=== PATIENT | male | born 1985 | race Caucasian/White ===

== ENCOUNTER 2017-08-24 02:57 | Emergency (ER) | payer SELFPAY ==
[2017-08-24 03:03] VITALS: BP 110/59; PULSE 90; TEMP 98.2; BMI 28.8
--- NOTE | 2017-08-24 03:20 | PDOC ---
History of Present Illness - General Chief Complaint: Cold Symptoms Stated Complaint: COLD SYMPTOMS Time Seen by Provider: 08/24/17 03:01 - History of Present Illness Initial Comments: 08/24/17 03:23 This otherwise healthy 32-year-old man presents with 2 week history of intermittent cough/ fever. Patient states that he has had episodes of nonproductive cough, fever, sore throat for the last 2 weeks. There are times that he gets better for a few days but then relapses. Tonight, he comes to the ER because he developed marked nasal congestion and noted mucus/clotted blood when he blew his nose just prior to presentation. This occurred after using [id number] "Vicks" nasal spray There was no epistaxis. He states he has had extensive exposure to family members who have similar symptoms of "the flu" . He is unsure whether any of his family members have been diagnosed with influenza or been treated with Tamiflu. He last measured his temperature last week and it was approximately 100.5F. He denies shaking chills and last took ibuprofen at 3 PM yesterday Patient did not receive influenza vaccine this year. No history of asthma/chronic bronchitis or other chronic respiratory illness Patient admits to smoking 1-2 packs of cigarettes daily Past History - Past Medical History Allergies/Adverse Reactions: Allergies Allergy/AdvReac Type Severity Reaction Status Date / Time No Known Allergies Allergy Verified 03/23/16 21:24 Home Medications: Ambulatory Orders Fluticasone Prop 0.05% Nasal [Flonase -] 1 - 2 spray NS BID #1 spray.pump COPD: No - Suicide/Smoking/Psychosocial Hx Smoking History: Current every day smoker Number of Cigarettes Smoked Daily: 40 Information on smoking cessation initiated: Yes 'Breaking Loose' booklet given: 08/24/17 Hx Alcohol Use: No Drug/Substance Use Hx: No Substance Use Type: None Review of Systems - Review of Systems Able to Perform ROS?: Yes Comments:: 12 point review of systems is negative except for what is noted in the history of present illness *Physical Exam - Vital Signs Last Vital Signs Temp Pulse Resp BP Pulse Ox 98.2 F 90 18 110/59 100 08/24/17 03:01 08/24/17 03:01 08/24/17 03:01 08/24/17 03:01 08/24/17 03:01 - Physical Exam Comments: GENERAL: Adult male, alert and oriented 3, ; speaking in full sentences with no respiratory distress Patient is afebrile; pulse oximetry 100% on room air EYES: PERRLA, EOMI, sclera anicteric, conjunctiva clear. ENT: Ears normal, nares patent, oropharynx moderately erythematous without exudates. Dry mucous membranes. NECK: Normal range of motion, supple without lymphadenopathy, JVD, or masses. LUNGS: Breath sounds equal, clear to auscultation bilaterally. No wheezes, and no crackles. HEART:Regular rate and rhythm, normal S1 and S2 without murmur, rub or gallop. ABDOMEN:.normal bowel sounds No guarding,tenderness or rebound.No masses No distention. EXTREMITIES: Normal range of motion, no edema. No clubbing or cyanosis. No erythema, or tenderness. NEUROLOGICAL: Cranial nerves II through XII grossly intact. Normal speech. No focal neurological deficits. MUSCULOSKELETAL: Back non-tender to palpation, no CVA tenderness SKIN: Warm, Dry, normal turgor, no rashes or lesions noted. Progress Note - Progress Note Progress Note: This 32-year-old man with no significant past medical history but is a heavy smoker presents with a few week history of nonproductive cough, fever and upper respiratory symptoms. On exam he is afebrile and has excellent oxygenation on room air. Other than mildly erythematous pharynx without exudates or edema, exam is normal with clear breath sounds and excellent air exchange. Clinical presentation most consistent with upper respiratory infection and mild bronchitis. Patient is currently using a vaporizer and he is encouraged to continue this and drink plenty of fluids. Because he is particularly bothered by his nasal symptoms (congestion), Flonase spray will be prescribed. He should avoid smoking as much as possible. He will return to the emergency room or see his doctor if he has persistent fever/productive cough/shortness of breath/wheezing *DC/Admit/Observation/Transfer Diagnosis at time of Disposition: Upper respiratory infection, viral, Bronchitis - Discharge Dispostion Disposition: HOME Condition at time of disposition: Stable - Prescriptions Prescriptions: Fluticasone Prop 0.05% Nasal [Flonase -] 1 - 2 spray NS BID #1 spray.pump - Referrals - Patient Instructions Printed Discharge Instructions: DI for Viral Upper Respiratory Infection -- Adult Additional Instructions: Drink plenty of fluids; continue use of vaporizer in room Flonase 2 sprays in each nostril twice a day for the next week Consider using antihistamine/decongestant if ear discomfort persists Avoid smoking Motrin/Aleve/Tylenol as needed for fever or body aches Return or see your doctor if you have difficulty breathing/high fever/green or yellow phlegm or nasal discharge - Post Discharge Activity
== END 2017-08-24 03:23 | disposition home or self-care (01) ==
LOC: FER 02:57
DX: J06.9 Acute upper respiratory infection, unspecified (principal); J40 Bronchitis, not specified as acute or chronic; F17.210 Nicotine dependence, cigarettes, uncomplicated
CPT/HCPCS: 99281-25

== ENCOUNTER 2018-05-27 11:51 | Emergency (ER) | payer OTHER ==
[2018-05-27 11:58] VITALS: BP 116/80; PULSE 83; TEMP 98.6; BMI 27.3
--- NOTE | 2018-05-27 12:08 | PDOC ---
History of Present Illness - General Chief Complaint: Pain, Acute Stated Complaint: LEFT SIDE PAIN Time Seen by Provider: 05/27/18 12:05 - History of Present Illness Initial Comments: 05/27/18 12:07 33 yo M with h/o spinal disc herniation, who presents with left sided flank pain. Patient reports acute onset of sharp, left sided spasmodic, flank pain, worse with deep inhalation, touch, and cough, and lasting for seconds. Pain x 2 days, with increased severity, not alleviated with OTC Advil (05/26/18). Reports similar onset, self resolving x 1 week ago lasting seconds. Also endorsed 2 days of nausea, without vomiting. Denies recent back trauma, heavy lifting, repetitive straining. Pain different than chronic lower lumbar back pain. Patient denies F,C, CP, SOB, dysuria, urinary complaints, abdominal pain, diarrhea, constipation, hematuria, BPR, lightheadedness, weakness, sensory changes. PMHx: as noted above. Denies h/o abdominal surgeries. ROS: as noted SHx: 1 ppd x 20 years tobacco use. Allergies: NKDA Past History - Past Medical History Allergies/Adverse Reactions: Allergies Allergy/AdvReac Type Severity Reaction Status Date / Time No Known Allergies Allergy Verified 05/27/18 11:52 Home Medications: Ambulatory Orders NK [No Known Home Medication] 05/27/18 COPD: No - Suicide/Smoking/Psychosocial Hx Smoking History: Current every day smoker Number of Cigarettes Smoked Daily: 20 Information on smoking cessation initiated: Yes 'Breaking Loose' booklet given: 05/27/18 Hx Alcohol Use: Yes Drug/Substance Use Hx: No Substance Use Type: Alcohol Review of Systems - Review of Systems Comments:: 05/27/18 12:07 GENERAL/CONSTITUTIONAL: No fever or chills. No weakness. HEAD, EYES, EARS, NOSE AND THROAT: No change in vision. No ear pain or discharge. No sore throat. CARDIOVASCULAR: No chest pain or shortness of breath RESPIRATORY: No cough, wheezing, or hemoptysis. GASTROINTESTINAL: No nausea, vomiting, diarrhea or constipation. GENITOURINARY: No dysuria, frequency, or change in urination. MUSCULOSKELETAL:+ Left sided flank pain. No joint or muscle swelling or pain. No neck pain. SKIN: No rash NEUROLOGIC: No headache, vertigo, loss of consciousness, or change in strength/ sensation. ENDOCRINE: No increased thirst. No abnormal weight change HEMATOLOGIC/LYMPHATIC: No anemia, easy bleeding, or history of blood clots. ALLERGIC/IMMUNOLOGIC: No hives or skin allergy. *Physical Exam - Vital Signs Last Vital Signs Temp Pulse Resp BP Pulse Ox 98.6 F 83 16 116/80 100 05/27/18 11:52 05/27/18 11:52 05/27/18 11:52 05/27/18 11:52 05/27/18 11:52 - Physical Exam Comments: 05/27/18 12:07 GENERAL: Awake, alert, and fully oriented, in no acute distress HEAD: No signs of trauma, normocephalic, atraumatic EYES: PERRLA, EOMI, sclera anicteric, conjunctiva clear ENT: Auricles normal inspection, hearing grossly normal, nares patent, oropharynx clear without exudates. Moist mucosa NECK: Normal ROM, supple, no lymphadenopathy, JVD, or masses LUNGS: No distress, speaks full sentences, clear to auscultation bilaterally HEART: Regular rate and rhythm, normal S1 and S2, no murmurs, rubs or gallops, peripheral pulses normal and equal bilaterally. ABDOMEN: + Left flank/CVA ttp. Soft, nontender, normoactive bowel sounds, NDS. No guarding, no rebound. No masses EXTREMITIES : Normal inspection, Normal range of motion, no edema. No clubbing or cyanosis. NEUROLOGICAL: Cranial nerves II through XII grossly intact. Normal speech, normal gait, no focal sensorimotor deficits Moderate Sedation - Procedure Monitoring Vital Signs: Procedure Monitoring Vital Signs Temperature 98.6 F 05/27/18 11:52 Pulse Rate 83 05/27/18 11:52 Respiratory Rate 16 05/27/18 11:52 Blood Pressure 116/80 05/27/18 11:52 O2 Sat by Pulse Oximetry (%) 100 05/27/18 11:52 ED Treatment Course - LABORATORY CBC & Chemistry Diagram: 05/27/18 12:38 05/27/18 12:38 Medical Decision Making - Medical Decision Making 05/27/18 12:37 33 yo M with h/o spinal disc herniation, who presents with left sided flank pain. VSS, AF, A&OX3. + Left sided flank ttp. Will conisder neprholithiasis vs. obstructive uroapthy vs. MSK related pain. Low suspicion pyelonephritis. Patient non toxic appearing, and AF. Low suspicion AAA, AO dissection, disc fracture, subluxation, cauda equina, epidural abscess. Pain control, and IVF hydration. Ed Course: CBC, CMP, UA, UCx Toradol, NS 05/27/18 13:44 Toradol 30 mg IVP 05/27/18 14:23 CBC,CMP: Unremarkable UA: Neg Pain improved. Pt. stable for d/c with return precautions. Advised to f/u with PMD. *DC/Admit/Observation/Transfer Diagnosis at time of Disposition: Flank pain - Discharge Dispostion Condition at time of disposition: Stable - Referrals - Patient Instructions Printed Discharge Instructions: DI for Flank Pain Additional Instructions: Please return to the emergency department with any new or worsening symptoms or concerns. Please follow up with your primary care physician within 72 hours. - Post Discharge Activity - Attestations Physician Attestion: 05/27/18 12:07 I attest to the information provided in this note.
[2018-05-27] MEDS ORDERED: SODIUM CHLORIDE 1,000 ML IV STA (12:30)
--- NOTE | 2018-05-27 13:05 | PDOC ---
Attending Attestation - Resident Resident Name: Lauri Borden - ED Attending Attestation I have performed the following: I have examined & evaluated the patient, The case was reviewed & discussed with the resident, I agree w/resident's findings & plan, Exceptions are as noted - HPI HPI: 05/27/18 12:54 33y M hx of disc herniations, presenting with L sided intermittent flank pain. The patient works as a [employer] and notes worsening L flank pain. Pt states he had an episode of the back pain last week that resolved and he was fine until yesterday when the pain came back while he was at work. The pain was more severe today so he came to get evaluated. Pt denies any fever/chills, n/v, dysuria, frquenecy, hematuria, diarrhea, numbness/tingling/weakness. Movemetns seem to worsen the pain. Pt took motrin without significant improvement. - Physicial Exam PE: 05/27/18 13:31 GENERAL: The patient is awake, alert, and fully oriented, Nontoxic - in no acute distress. HEAD: Normocephalic, atraumatic. EYES: extraocular movements intact, sclera anicteric, conjunctiva clear. ENT: Normal voice, Moist mucous membranes. NECK: Normal range of motion, supple LUNGS: Breath sounds equal, clear to auscultation bilaterally. No wheezes, no rhonchi, no rales. HEART: Regular rate and rhythm, normal S1 and S2 without murmur, rub or gallop. ABDOMEN: Soft, nontender, No guarding, no rebound. No CVA tenderness MSK: Moderate reproducible tenderness to the L inferior rib/flank, pain also worse with rotational movement of torso, no rashes, no focal miidline or paraspinal tenderness on cervcical/throacic/lumbar spine EXTREMITIES: Normal range of motion, no edema. NEUROLOGICAL: No facial assymetry, Normal speech, PSYCH: Normal mood, normal affect. SKIN: Warm, Dry, normal turgor, - Medical Decision Making 05/27/18 13:34 suspect msk pain will treat eith torodaol consider kidney stones - will obtain UA to r/o heamturia will reassess 05/27/18 15:34 pt feel improved no hematuria will dc with supportive care at home return precautions were dsicussed
[2018-05-27 13:11] LABS: BASO % 0.3 % (0-2.0); HEMATOCRIT 48.3 % (35.4-49); HEMOGLOBIN 16.5 GM/dl (11.7-16.9); LYMPH % 27.4 % (8-40); MCHC 34.1 g/dl (32.0-35.9); MEAN CELL VOLUME 96.7 fl (80-96); MEAN PLT VOLUME 9.4 fl (7.5-11.1); MONO % 4.9 % (3.8-10.2); NEUT % 66.4 % (42.8-82.8); RBC 4.99 M/mm3 (4.00-5.60); RDW 12.4 % (11.9-15.9); WHITE BLOOD COUNT 9.2 K/mm3 (4.0-10.8)
[2018-05-27 13:14] LABS: ALBUMIN 4.3 g/dl (3.5-5.0); ALK PHOS 60 U/L (32-92); ANION GAP 3 MMOL/L (8-16); BILIRUBIN,TOTAL 0.5 mg/dl (0.2-1.0); BLOOD UREA NITROGEN 11 mg/dl (7-18); CALCIUM 9.2 mg/dl (8.4-10.2); CHLORIDE 105 mmol/L (98-107); CO2 28 mmol/L (22-28); CREATININE 0.7 mg/dl (0.6-1.3); GLUCOSE,RANDOM 97 mg/dl (74-106); POTASSIUM 3.9 mmol/L (3.5-5.1); SGOT/AST 19 U/L (10-42); SGPT/ALT 21 U/L (10-40); SODIUM 136 mmol/L (136-145); TOT PROT 6.7 g/dl (6.4-8.3)
[2018-05-27 13:38] LABS: URINE APPEARANCE Clear; URINE BILIRUBIN Negative (NEGATIVE); URINE COLOR Yellow; URINE GLUCOSE (UA) Negative (NEGATIVE); URINE KETONE Negative (NEGATIVE); URINE LEUK ESTERASE Negative (NEGATIVE); URINE NITRITE Negative (NEGATIVE); URINE PROTEIN Negative (NEGATIVE); URINE UROBILINOGEN 0.2 (0.2-1.0)
[2018-05-27] MEDS ORDERED: KETOROLAC TROMETHAMINE 30 MG/1 ML VIAL IVPUSH ONE (13:44)
[2018-05-27 13:53] LABS: PLATELET COUNT 197 K/MM3 (134-434)
[2018-05-27] MEDS ORDERED: KETOROLAC TROMETHAMINE 30 MG/1 ML VIAL ONE (13:53)
== END 2018-05-27 14:57 | disposition home or self-care (01) ==
LOC: FER 11:51
PROC: 3E0333Z Introduction of Anti-inflammatory into Peripheral Vein, Percutaneous Approach (ICD-10-PCS; principal; 2018-05-27)
PROC: 3E0337Z Introduction of Electrolytic and Water Balance Substance into Peripheral Vein, Percutaneous Approach (ICD-10-PCS; 2018-05-27)
DX: R10.32 Left lower quadrant pain (principal); F17.210 Nicotine dependence, cigarettes, uncomplicated
CPT/HCPCS: 36415; 80053; 81003; 85025; 87086; 96361; 96374; 99282-25; J7030